=== PATIENT | female | born 1940 | race Caucasian/White ===

== ENCOUNTER 2017-02-23 09:11 | Inpatient (IN) | payer MEDICARE ==
[~2017-02-23] VITALS: Ht 172.7 cm; Wt 76.2 kg
[~2017-02-23 09:11] MED LIST: ALBU6.7H INH; ALPR0.25 PO; ASPI325T80 PO; BUPR75TA5 PO; CALC-112 PO; CHOL100011 PO; CYCL-259 PO; DICY10CA53 PO; DONE10TA56 PO; ESTR1TAB5 PO; GLUC-121 PO; HYDR-3240 PO; LACT10SO5 PO; LACT1CAP35 PO; LOSA50TA2 PO; MESA800T2 PO; MULT-658 PO; OMEP20TA62 PO; OXYC1TAB7 PO; PREG25CA PO
[2017-02-23 10:12] LABS: HEMATOCRIT 41.5 % (34.6-47.8); HEMOGLOBIN 13.7 g/dL (11.7-16.4); WHITE BLOOD COUNT 9.3 x10^3/uL (3.4-10)
[2017-02-23] MEDS ORDERED: ASPIRIN 81 MG TABLET CHEW ONE (10:38)
[2017-02-23] MEDS ORDERED: SODIUM CHLORIDE FLUSH 10ML SYR IVF ONE (11:00)
[2017-02-23] MEDS ORDERED: ASPIRIN 81 MG TABLET CHEW PO ONE (11:00)
[2017-02-23 11:30] LABS: ASPARTATE AMINO TRANSFERASE 19 U/L (15-37); BLOOD UREA NITROGEN 19 mg/dL (7-18)
[2017-02-23] MEDS ORDERED: MORPHINE SULFATE 4 MG/ML, 1ML ONE (11:30)
[2017-02-23] MEDS ORDERED: ONDANSETRON 2MG/ML, 2ML ONE (11:30)
[2017-02-23] MEDS ORDERED: NITROGLYCERIN SINGLE TAB 0.4 MG SL ONE (11:30)
[2017-02-23] MEDS ORDERED: MORPHINE SULFATE 4 MG/ML, 1ML IVPush PRN (11:30)
[2017-02-23] MEDS ORDERED: ONDANSETRON 2MG/ML, 2ML IVPush ONE (11:30)
[2017-02-23 11:31] LABS: IS PT STATUS REG ER OR PRE ER? YES
[2017-02-23] MEDS: NITROGLYCERIN SINGLE TAB 0.4 MG SL PRN ×2 (11:32→12:28)
[2017-02-23] MEDS ORDERED: SODIUM CHLORIDE FLUSH 10ML SYR IVF PRN (12:30)
[2017-02-23] MEDS: SODIUM CHLORIDE 0.9% 1,000 ML IV SCH (14:23)
[2017-02-23 14:30] VITALS: BP 171/68
[2017-02-23] MEDS ORDERED: ONDANSETRON 2MG/ML, 2ML IVPush PRN (14:30)
[2017-02-23] MEDS ORDERED: ACETAMINOPHEN 325 MG TABLET PO PRN (14:30)
[2017-02-23] MEDS ORDERED: ENALAPRILAT 1.25 MG/ML, 2ML IVPush PRN (14:30)
[2017-02-23] MEDS ORDERED: LABETALOL 5MG/ML, 20ML IVPush PRN (14:30)
[2017-02-23] MEDS ORDERED: DOCUSATE 100 MG CAPSULE PO PRN (14:30)
[2017-02-23] MEDS ORDERED: POLYETHYLENE GLYCOL 17 GM PACKET PO PRN (14:30)
[2017-02-23] MEDS ORDERED: METHOCARBAMOL 750 MG TABLET PO PRN (14:30)
[2017-02-23] MEDS ORDERED: BISACODYL 10 MG SUPP PR PRN (14:30)
[2017-02-23] MEDS ORDERED: HYDROcodone/APAP 10/325 MG TABLET PO PRN (14:30)
[2017-02-23] MEDS: NICOTINE 14MG/24 HR PATCH.TD24 TD SCH (14:46)
[2017-02-23 14:49] VITALS: BP 148/80
[2017-02-23 15:57] LABS: IS PT STATUS REG ER OR PRE ER? NO
[2017-02-23 16:30] VITALS: BP 171/68
[2017-02-23] MEDS: morphine SULFATE 10 MG/ML, 1ML IVPush PRN (16:38)
[2017-02-23 17:00] VITALS: BP 131/79
[2017-02-23] MEDS ORDERED: OMNIPAQUE 350 MG/ML, 100ML BOTTLE ONE (19:00)
[2017-02-23 19:29] VITALS: BP 132/79
[2017-02-23 20:59] LABS: IS PT STATUS REG ER OR PRE ER? NO
[2017-02-23] MEDS: DICYCLOMINE 10 MG CAPSULE PO SCH (21:00)
[2017-02-23] MEDS: BUPROPION 75 MG TABLET PO SCH (21:00)
[2017-02-23] MEDS: MESALAMINE 400 MG CAPSULE.DR PO SCH (21:00)
[2017-02-23] MEDS: SODIUM CHLORIDE FLUSH 10ML SYR IVF SCH (21:21)
[2017-02-24] MEDS: morphine SULFATE 10 MG/ML, 1ML IVPush PRN ×3 (00:35→08:40)
[2017-02-24] MEDS: SODIUM CHLORIDE 0.9% 1,000 ML IV SCH (00:38)
[2017-02-24 02:00] VITALS: BP 137/83
[2017-02-24 05:31] LABS: ASPARTATE AMINO TRANSFERASE 17 U/L (15-37); BLOOD UREA NITROGEN 20 mg/dL (7-18)
[2017-02-24 05:37] LABS: HEMATOCRIT 39.5 % (34.6-47.8); HEMOGLOBIN 13.1 g/dL (11.7-16.4); WHITE BLOOD COUNT 7.9 x10^3/uL (3.4-10)
[2017-02-24] MEDS ORDERED: ASPIRIN 325 MG TABLET EC PO SCH (06:00)
[2017-02-24 07:48] VITALS: BP 108/67
[2017-02-24] MEDS ORDERED: REGADENOSON 0.4 MG/5 ML SYRINGE ONE (08:26)
[2017-02-24] MEDS: MESALAMINE 400 MG CAPSULE.DR PO SCH (08:35)
[2017-02-24] MEDS: BUPROPION 75 MG TABLET PO SCH (08:35)
[2017-02-24] MEDS: DICYCLOMINE 10 MG CAPSULE PO SCH (08:36)
[2017-02-24] MEDS: SODIUM CHLORIDE FLUSH 10ML SYR IVF SCH (08:37)
[2017-02-24] MEDS ORDERED: MULTIVITAMIN 1 TABLET PO SCH (09:00)
[2017-02-24] MEDS ORDERED: LOSARTAN 50MG TABLET PO SCH (09:00)
[2017-02-24] MEDS: NICOTINE 14MG/24 HR PATCH.TD24 TD SCH (14:00)
== END 2017-02-24 14:55 | disposition home or self-care (01) | DRG 313 ==
LOC: ED 11:14 → EDIP 13:30 → 5SO 13:31
PROVIDERS: ADMIT Internal Medicine; ATTEND Internal Medicine
DX: R07.89 Other chest pain (principal); J43.9 Emphysema, unspecified; I10 Essential (primary) hypertension; F17.200 Nicotine dependence, unspecified, uncomplicated; F41.9 Anxiety disorder, unspecified; N28.9 Disorder of kidney and ureter, unspecified; Z82.49 Family history of ischemic heart disease and other diseases of the circulatory system; Z83.3 Family history of diabetes mellitus; Z85.51 Personal history of malignant neoplasm of bladder; Z87.19 Personal history of other diseases of the digestive system; Z96.649 Presence of unspecified artificial hip joint; Z88.0 Allergy status to penicillin; Z88.2 Allergy status to sulfonamides; Z88.8 Allergy status to other drugs, medicaments and biological substances
CPT/HCPCS: 36415; 71010; 71275; 78452; 80053; 80061; 83735; 84443; 84484; 85025; 85379; 93005; 93017; 96374; 96375; J2405; J2785; Q9967; A9502; C9898; J2270; J7030

== ENCOUNTER 2017-03-19 09:13 | Inpatient (IN) | payer MEDICARE ==
[~2017-03-19] VITALS: Ht 172.7 cm; Wt 79.8 kg
[2017-03-19] MEDS ORDERED: SODIUM CHLORIDE 0.9% 1,000 ML IV ONE ×2 (09:28→11:48)
[2017-03-19] MEDS ORDERED: SODIUM CHLORIDE FLUSH 10ML SYR IVF ONE (09:30)
[2017-03-19] MEDS ORDERED: SODIUM CHLORIDE 0.9% 1,000ML IVBOLUS ONE (09:30)
[2017-03-19] MEDS ORDERED: ONDANSETRON 2MG/ML, 2ML IVPush ONE (09:30)
[2017-03-19] MEDS ORDERED: morphine SULFATE 10 MG/ML, 1ML ONE (09:37)
[2017-03-19] MEDS ORDERED: ONDANSETRON 2MG/ML, 2ML ONE ×2 (09:37→18:33)
[2017-03-19] MEDS: MORPHINE SULFATE 4 MG/ML, 1ML IVPush PRN ×2 (09:43→10:00)
[2017-03-19 10:05] LABS: HEMATOCRIT 42.5 % (34.6-47.8); WHITE BLOOD COUNT 11.7 x10^3/uL (3.4-10)
[2017-03-19] MEDS ORDERED: HYDROmorphone 1 MG/ML, 1ML ONE ×2 (10:53→19:27)
[2017-03-19] MEDS: HYDROmorphone 1 MG/ML, 1ML IVPush PRN ×3 (10:57→14:26)
[2017-03-19 10:58] LABS: BLOOD UREA NITROGEN 17 mg/dL (7-18)
[2017-03-19 11:01] LABS: PATH.CAST-FLAG NOT PRESENT; SPERM-FLAG NOT PRESENT; SRC-FLAG NOT PRESENT; XTAL-FLAG NOT PRESENT; YLC-FLAG NOT PRESENT
[2017-03-19] MEDS ORDERED: SODIUM CHLORIDE FLUSH 10ML SYR IVF PRN (12:00)
[2017-03-19] MEDS ORDERED: ONDANSETRON 2MG/ML, 2ML IVPush PRN ×2 (12:00→19:00)
[2017-03-19] MEDS ORDERED: HYDROmorphone 1 MG/ML, 1ML IVPush PRN (12:00)
[2017-03-19] MEDS ORDERED: HYDR-3307 PO (13:02)
[2017-03-19] MEDS ORDERED: METH750T2 PO (13:02)
[2017-03-19 14:57] VITALS: BP 118/73
[2017-03-19] MEDS ORDERED: NEOSPORIN OINT, 15GM ONE (18:08)
[2017-03-19] MEDS ORDERED: FENTANYL PF 100 MCG/2ML ONE ×5 (18:20→19:53)
[2017-03-19] MEDS ORDERED: ROCURONIUM 10MG/ML,5ML ONE (18:33)
[2017-03-19] MEDS ORDERED: PROPOFOL 10 MG/ML, 20ML ONE (18:33)
[2017-03-19] MEDS ORDERED: DEXAMETHASONE 4 MG/ML, 5ML ONE (18:33)
[2017-03-19] MEDS ORDERED: CEFAZOLIN 1,000 MG ONE (18:33)
[2017-03-19] MEDS ORDERED: KETOROLAC 30 MG/1 ML ONE (18:33)
[2017-03-19] MEDS ORDERED: morphine SULFATE 10 MG/ML, 1ML IV PRN (19:00)
[2017-03-19] MEDS ORDERED: ACETAMINOPHEN 325 MG TABLET PO PRN (19:00)
[2017-03-19] MEDS ORDERED: OXYcodone 5 MG/5 ML ORAL.SOL UDC PO PRN (19:00)
[2017-03-19] MEDS ORDERED: MEPERIDINE/PF 25MG/0.5ML IVPush PRN (19:00)
[2017-03-19] MEDS: FENTANYL PF 100 MCG/2ML IV PRN ×2 (19:55→20:01)
[2017-03-19] MEDS ORDERED: HYDROcodone/APAP 7.5-325MG/15ML UDC ONE (20:03)
[2017-03-19] MEDS ORDERED: HYDROcodone/APAP 7.5-325MG/15ML UDC PO PRN (20:30)
[2017-03-19] MEDS: [UNRECOGNIZED DRUG - REMARK] MC SCH (21:00)
[2017-03-19] MEDS ORDERED: HYDROmorphone 1 MG/ML, 1ML IV PRN (21:00)
[2017-03-19] MEDS ORDERED: ONDANSETRON 2MG/ML, 2ML IV PRN (21:00)
[2017-03-19] MEDS: DICYCLOMINE 10 MG CAPSULE PO SCH (22:34)
[2017-03-19] MEDS: MESALAMINE 400 MG CAPSULE.DR PO SCH (22:36)
[2017-03-19] MEDS: KETOROLAC 30 MG/1 ML IV SCH (22:38)
[2017-03-19] MEDS: CLINDAMYCIN PMX 600MG/50ML 50 ML IVPB SCH (22:38)
[2017-03-19] MEDS: BUPROPION 75 MG TABLET PO SCH (22:38)
[2017-03-19] MEDS: DOCUSATE 100 MG CAPSULE PO SCH (22:38)
[2017-03-20 00:39] VITALS: BP 86/56
[2017-03-20] MEDS ORDERED: SODIUM CHLORIDE 0.9%, 250ML IVBOLUS ONE (02:00)
[2017-03-20 02:51] VITALS: BP 91/45
[2017-03-20] MEDS: [UNRECOGNIZED DRUG - REMARK] MC SCH ×2 (05:00→21:00)
[2017-03-20] MEDS: ENOXAPARIN 40 MG/0.4 ML SQ SCH (06:27)
[2017-03-20] MEDS: CLINDAMYCIN PMX 600MG/50ML 50 ML IVPB SCH (06:27)
[2017-03-20] MEDS: KETOROLAC 30 MG/1 ML IV SCH ×2 (06:27→12:57)
[2017-03-20 07:52] VITALS: BP 99/64
[2017-03-20] MEDS: DICYCLOMINE 10 MG CAPSULE PO SCH ×3 (09:00→22:23)
[2017-03-20] MEDS ORDERED: TEMPLATE NON-FORMULARY MED. (Glucosamine/Msm/Chondroitin A** (Glucosamine Chondroit Msm Ta PO SCH (09:00)
[2017-03-20] MEDS: LOSARTAN 50MG TABLET PO SCH (09:00)
[2017-03-20] MEDS: MESALAMINE 400 MG CAPSULE.DR PO SCH ×2 (09:20→22:23)
[2017-03-20] MEDS: MULTIVITAMIN 1 TABLET PO SCH (09:20)
[2017-03-20] MEDS: CHOLECALCIFEROL 1,000 UNIT TABLET PO SCH (09:20)
[2017-03-20] MEDS: HYDROcodone/APAP 10/325 MG TABLET PO SCH ×4 (09:20→23:10)
[2017-03-20] MEDS: BUPROPION 75 MG TABLET PO SCH ×2 (09:20→22:23)
[2017-03-20] MEDS: LACTOBACILLUS CHEW TABLET PO SCH ×3 (09:20→16:18)
[2017-03-20] MEDS: METHOCARBAMOL 750 MG TABLET PO SCH (09:21)
[2017-03-20 12:49] VITALS: BP 112/57
[2017-03-20] MEDS: DOCUSATE 100 MG CAPSULE PO SCH ×2 (12:57→22:24)
[2017-03-20 15:17] VITALS: BP 110/65
[2017-03-20] MEDS ORDERED: NICOTINE 14MG/24 HR PATCH.TD24 TD ONE (16:00)
[2017-03-20] MEDS: HYDROcodone/APAP 7.5-325MG/15ML UDC PO PRN (18:37)
[2017-03-20 19:17] VITALS: BP 106/68
[2017-03-21 02:47] VITALS: BP 116/57
[2017-03-21] MEDS: HYDROcodone/APAP 7.5-325MG/15ML UDC PO PRN (05:10)
[2017-03-21] MEDS: ENOXAPARIN 40 MG/0.4 ML SQ SCH (05:14)
[2017-03-21 06:49] LABS: HEMATOCRIT 31.5 % (34.6-47.8); HEMOGLOBIN 10.4 g/dL (11.7-16.4); WHITE BLOOD COUNT 9.4 x10^3/uL (3.4-10)
[2017-03-21 06:51] LABS: BLOOD UREA NITROGEN 10 mg/dL (7-18)
[2017-03-21] MEDS: [UNRECOGNIZED DRUG - REMARK] MC SCH ×3 (07:45→21:00)
[2017-03-21 09:00] VITALS: BP 138/81
[2017-03-21] MEDS: MULTIVITAMIN 1 TABLET PO SCH (09:31)
[2017-03-21] MEDS: LACTOBACILLUS CHEW TABLET PO SCH ×3 (09:31→17:10)
[2017-03-21] MEDS: BUPROPION 75 MG TABLET PO SCH ×2 (09:31→21:43)
[2017-03-21] MEDS: MESALAMINE 400 MG CAPSULE.DR PO SCH ×2 (09:31→21:00)
[2017-03-21] MEDS: HYDROcodone/APAP 10/325 MG TABLET PO SCH ×3 (09:31→21:37)
[2017-03-21] MEDS: CHOLECALCIFEROL 1,000 UNIT TABLET PO SCH (09:31)
[2017-03-21] MEDS: LOSARTAN 50MG TABLET PO SCH (09:31)
[2017-03-21] MEDS: METHOCARBAMOL 750 MG TABLET PO SCH (09:31)
[2017-03-21] MEDS: DICYCLOMINE 10 MG CAPSULE PO SCH ×2 (09:32→21:00)
[2017-03-21] MEDS: DOCUSATE 100 MG CAPSULE PO SCH ×2 (09:32→21:00)
[2017-03-21 13:36] VITALS: BP 103/58
[2017-03-21 19:41] VITALS: BP 111/70
[2017-03-21] MEDS ORDERED: NICOTINE 14MG/24 HR PATCH.TD24 TD SCH (22:30)
[2017-03-22 02:02] VITALS: BP 122/67
[2017-03-22] MEDS: HYDROcodone/APAP 7.5-325MG/15ML UDC PO PRN (03:53)
[2017-03-22] MEDS: [UNRECOGNIZED DRUG - REMARK] MC SCH ×2 (05:00→13:00)
[2017-03-22] MEDS: ENOXAPARIN 40 MG/0.4 ML SQ SCH (06:13)
[2017-03-22 07:10] VITALS: BP 129/68
[2017-03-22] MEDS: DOCUSATE 100 MG CAPSULE PO SCH (09:00)
[2017-03-22] MEDS: CHOLECALCIFEROL 1,000 UNIT TABLET PO SCH (09:33)
[2017-03-22] MEDS: DICYCLOMINE 10 MG CAPSULE PO SCH (09:33)
[2017-03-22] MEDS: MULTIVITAMIN 1 TABLET PO SCH (09:33)
[2017-03-22] MEDS: METHOCARBAMOL 750 MG TABLET PO SCH (09:33)
[2017-03-22] MEDS: HYDROcodone/APAP 10/325 MG TABLET PO SCH ×2 (09:33→16:21)
[2017-03-22] MEDS: BUPROPION 75 MG TABLET PO SCH (09:33)
[2017-03-22] MEDS: LACTOBACILLUS CHEW TABLET PO SCH ×2 (09:34→12:00)
[2017-03-22] MEDS: MESALAMINE 400 MG CAPSULE.DR PO SCH (09:34)
[2017-03-22] MEDS: LOSARTAN 50MG TABLET PO SCH (09:34)
[2017-03-22] MEDS ORDERED: ENOX40SY4 SQ (13:39)
[2017-03-22] MEDS ORDERED: TRAM50TA2 PO (13:39)
[2017-03-22] MEDS ORDERED: OXYC1TAB7 PO (13:39)
[2017-03-22] MEDS: OXYcodone/APAP 5/325MG TABLET PO PRN ×2 (14:07→17:18)
[2017-03-22 14:12] VITALS: BP 119/77
== END 2017-03-22 17:21 | DRG 469 ==
LOC: ED 09:54 → EDIP 11:48 → 4NOR 13:20
PROVIDERS: ADMIT Internal Medicine; ATTEND Internal Medicine
PROC: 0SRS019 Replacement of Left Hip Joint, Femoral Surface with Metal Synthetic Substitute, Cemented, Open Approach (ICD-10-PCS; 2017-03-19)
PROC: 0T9B70Z Drainage of Bladder with Drainage Device, Via Natural or Artificial Opening (ICD-10-PCS; principal; 2017-03-19 18:45)
DX: M80.052A Age-related osteoporosis with current pathological fracture, left femur, initial encounter for fracture (principal); J96.20 Acute and chronic respiratory failure, unspecified whether with hypoxia or hypercapnia; D64.9 Anemia, unspecified; Z96.641 Presence of right artificial hip joint; Z88.0 Allergy status to penicillin; Z88.2 Allergy status to sulfonamides; Z88.8 Allergy status to other drugs, medicaments and biological substances; F17.200 Nicotine dependence, unspecified, uncomplicated; F32.9 Major depressive disorder, single episode, unspecified; F41.9 Anxiety disorder, unspecified; G89.29 Other chronic pain; I10 Essential (primary) hypertension; M81.0 Age-related osteoporosis without current pathological fracture; W19.XXXA Unspecified fall, initial encounter; Y93.89 Activity, other specified; Y92.098 Other place in other non-institutional residence as the place of occurrence of the external cause; Y99.8 Other external cause status; Z85.51 Personal history of malignant neoplasm of bladder; Z87.19 Personal history of other diseases of the digestive system; Z90.49 Acquired absence of other specified parts of digestive tract
CPT/HCPCS: 36415; 51702; 71010; 80048; 81001; 82040; 83735; 85025; 85610; 85730; 87077; 87086; 87186; 93005; 96361; 96374; C1713; J0690; J1100; J1170; J1650; J1885; J2405; J2704; J3010; C1762; C1776; J7030; J7050